=== PATIENT | male | born 1970 | race American Indian/Alaskan Native ===

== ENCOUNTER 2017-03-23 13:53 | Emergency (ER) | payer MEDICAID ==
[2017-03-23 14:12] VITALS: BMI 23.6
[2017-03-23 14:21] VITALS: RESP 18; TEMP 98.3
--- NOTE | 2017-03-23 16:12 | CT ---
PROCEDURE: CT scan of the brain dated 03/23/2017 HISTORY: Rule out intracranial hemorrhage and fracture. COMPARISON: No prior study available comparison however correlation made with concurrent CT scan of the orbits. TECHNIQUE: Contiguous helical/ transaxial sections were obtained through the head/brain without intravenous contrast. Radiation dose: Total exam DLP = 1280.18 mGy-cm. This CT exam was performed using one or more of the following dose reduction techniques: Automated exposure control, adjustment of the mA and/or kV according to patient size, and/or use of iterative reconstruction technique. FINDINGS: HEMORRHAGE: No acute parenchymal, subarachnoid or extra-axial hemorrhage. . BRAIN: Mild diffuse/confluent chronic periventricular white matter ischemic changes seen with scattered chronic appearing subcortical ischemic changes as well. Mild generalized volume loss. VENTRICLES: No obstructive hydrocephalus. CALVARIUM: There are no acute calvarial fractures so far as can be seen. . There is mild right supraorbital soft tissue/scalp swelling. Suspect old fracture deformity of the right lamina papyracea. Fracture deformity of the PARANASAL SINUSES: There is moderate mucosal thickening within the right maxillary antrum and mild moderate mucosal thickening left maxillary antrum. Mild moderate mucosal thickening noted within the ethmoid air complex extending superiorly into the frontal sinus No more so on the left side. Minimal mucosal thickening sphenoid sinus. MASTOID AIR CELLS: Unremarkable as visualized. No inflammatory changes. OTHER FINDINGS: None. IMPRESSION: No acute intracranial hemorrhage. Mild chronic white matter ischemic changes. Mild right supraorbital soft tissue/scalp swelling. Probable old fracture deformity right lamina papyracea. Mild mucoperiosteal inflammatory changes within the aforementioned paranasal sinuses.
--- NOTE | 2017-03-23 16:19 | CT ---
PROCEDURE: CT MAXILLOFACIAL BONES WITHOUT CONTRAST HISTORY: r/o fx COMPARISON: None TECHNIQUE: Contiguous axial CT images of the maxillofacial bones were obtained. Coronal and sagittal reformats were generated. Radiation dose: Total exam DLP = 797.85 mGy-cm. This CT exam was performed using one or more of the following dose reduction techniques: Automated exposure control, adjustment of the mA and/or kV according to patient size, and/or use of iterative reconstruction technique. . FINDINGS: NASAL BONES: Unremarkable. ORBITS: Depressed right lamina papyracea fracture of indeterminate age. No acute orbital floor fracture. Defect in the lateral right orbital floor may be developmental or the result of old fracture. No other orbital fracture appreciated. Soft tissue swelling right frontal scalp extending to right superior palpebrum. PARANASAL SINUSES/ MASTOIDS: Extensive chronic paranasal sinusitis involving ethmoid and bilateral maxillary sinuses with lesser involvement of frontal and sphenoid sinuses. No fluid collections. MAXILLA: Unremarkable. MANDIBLE/ TEMPOROMANDIBULAR JOINTS: Unremarkable. SKULL BASE: Unremarkable. TEMPORAL BONES: Middle ears and mastoid grossly unremarkable. OTHER FINDINGS: None. IMPRESSION: Right lamina papyracea fracture of indeterminate age. Possible old right orbital floor fracture but no evidence of acute fracture. Right frontal scalp soft tissue swelling. Chronic paranasal sinusitis.
--- NOTE | 2017-03-23 17:00 | RAD ---
HISTORY: s/p fall r/o fx and PTX COMPARISON: No prior. TECHNIQUE: Chest PA and lateral FINDINGS: LUNGS: No active pulmonary disease. PLEURA: No significant pleural effusion identified. No pneumothorax apparent. CARDIOVASCULAR: Normal. OSSEOUS STRUCTURES: No significant abnormalities. VISUALIZED UPPER ABDOMEN: Normal. OTHER FINDINGS: None. IMPRESSION: No active disease.
--- NOTE | 2017-03-23 17:18 | C.PDOC ---
History Of Present Illness 46 y/o male presents to ED c/o pain to lower lip and chest region after falling off approximately 7 feet off of a ladder. Denies LOC, nausea, vomiting, shortness of breath, or change in vision. - HPI Chief Complaint (Nursing): Trauma History Per: Patient History/Exam Limitations: no limitations Recent travel outside of the [place]: No Additional History Per: Patient Past Medical History Reviewed: Historical Data, Nursing Documentation, Vital Signs Vital Signs: Last Vital Signs Temp 98.3 F 03/23/17 14:17 Pulse 103 H 03/23/17 17:25 Resp 18 03/23/17 17:25 BP 135/92 H 03/23/17 17:25 Pulse Ox 98 03/23/17 19:05 - Medical History PMH: HTN - [facility] Procedures OTH WOUND IRRIGATION (03/06/13) TETANUS TOXOID ADMINIST (03/06/13) Family History: States: Unknown Family Hx - Social History Hx Tobacco Use: Yes Hx Alcohol Use: Yes Hx Substance Use: No - Immunization History Hx Tetanus Toxoid Vaccination: No Review Of Systems Except As Marked, All Systems Reviewed And Found Negative. Constitutional: Negative for: Fever, Chills ENT: Positive for: Mouth Pain (lower lip pain) Cardiovascular: Positive for: Chest Pain. Negative for: Palpitations, Light Headedness Respiratory: Negative for: Cough, Shortness of Breath Gastrointestinal: Negative for: Nausea, Vomiting, Abdominal Pain Physical Exam - Physical Exam Appears: Non-toxic, No Acute Distress Skin: Normal Color, Warm, Dry Head: Atraumatic, Normacephalic Eye(s): bilateral: Normal Inspection Oral Mucosa: Moist Tongue: Normal Appearing Lips: No Swelling, Abrasion (inside of lower lip), No Laceration Chest: Symmetrical, No Deformity, No Tenderness, No Ecchymosis Cardiovascular: Rhythm Regular, No Murmur Respiratory: Normal Breath Sounds, No Rales, No Rhonchi, No Wheezing Gastrointestinal/Abdominal: Soft, No Tenderness Extremity: Normal ROM, No Deformity Neurological/Psych: Oriented x3, Normal Speech ED Course And Treatment O2 Sat by Pulse Oximetry: 98 Medical Decision Making Medical Decision Making: Plan: Head CT Orbits/faical CT CXR Motrin Disposition - Disposition Referrals: Corinne Junior, [Non-Staff] - Disposition: HOME/ ROUTINE Disposition Time: 17:00 Condition: GOOD Additional Instructions: Thank you for letting us take care of you today. The emergency medical care you received today was directed at your acute symptoms. If you were prescribed any medication, please fill it and take as directed. It may take several days for your symptoms to resolve. Return to the Emergency Department if your symptoms worsen, do not improve, or if you have any other problems. Please contact your doctor or call one of the physicians/clinics you have been referred to that are listed on the Patient Visit Information form that is included in your discharge packet. Bring any paperwork you were given at discharge with you along with any medications you are taking to your follow up visit. Our treatment cannot replace ongoing medical care by a primary care provider (PCP) outside of the emergency department. Thank you for allowing the [facility] team to be part of your care today. Follow up with your doctor in 2-3 days for re-evaluation and further management. Prescriptions: Ibuprofen [Motrin] 600 mg PO Q6 PRN #20 tab PRN Reason: Pain, Moderate (4-7) Instructions: Closed Head Injury Forms: [employer] (Uruguayan) - Clinical Impression Clinical Impression: Head contusion - Scribe Statement The provider has reviewed the documentation as recorded by the Scribe Priyanka Hanks All medical record entries made by the Scribe were at my direction and personally dictated by me. I have reviewed the chart and agree that the record accurately reflects my personal performance of the history, physical exam, medical decision making, and the department course for this patient. I have also personally directed, reviewed, and agree with the discharge instructions and disposition.
[2017-03-23 17:26] VITALS: BP 135/92; PULSE 103
[2017-03-23 19:03] VITALS: O2SAT 98
--- NOTE | 2017-03-26 12:33 | CARD ---
APPROVED REPORT EKG Measurement Heart [id number] <Conclusion> Normal sinus rhythm Possible Left atrial enlargement Borderline ECG
== END 2017-03-23 17:26 | disposition home or self-care (01) ==
LOC: C.ER 13:53
DX: S00.93XA Contusion of unspecified part of head, initial encounter (principal); W11.XXXA Fall on and from ladder, initial encounter; Y92.89 Other specified places as the place of occurrence of the external cause

== ENCOUNTER 2018-04-12 11:34 | Emergency (ER) | payer MEDICAID, OTHER ==
[2018-04-12 11:34] VITALS: BMI 23.6
[2018-04-12 11:42] VITALS: TEMP 97.3
[2018-04-12] MEDS ORDERED: Tmp-Smz 800 mg-160 mg DS Tab PO STA (12:18)
[2018-04-12] MEDS ORDERED: Tmp-Smz 800 mg-160 mg DS Tab ONE (12:28)
--- NOTE | 2018-04-12 12:33 | C.PDOC ---
History Of Present Illness 47 y/o male presents to the ED for evaluation of epistaxis from the left nare since 10:00am today. States that he has been blowing his nose a lot recently, and admits to digital trauma inside the nare, though he is unsure if this precipitated the bleeding. Attempted to pack with tissues x4 but it continues to bleed. Denies applying pressure to the nose. He denies any fever, chills, nausea, vomiting, or hx of seasonal allergies. Time Seen by Provider: 04/12/18 11:46 Chief Complaint (Nursing): ENT Problem History Per: Patient History/Exam Limitations: no limitations Onset/Duration Of Symptoms: Hrs Current Symptoms Are (Timing): Still Present Location Of Bleeding: Left Nare Associated Symptoms: denies: Lightheadedness, Bleeding From Gums Recent Aspirin Use: No Past Medical History Reviewed: Historical Data, Nursing Documentation, Vital Signs Vital Signs: Last Vital Signs Temp 97.3 F L 04/12/18 11:39 Pulse 94 H 04/12/18 11:39 Resp 18 04/12/18 11:39 BP 169/106 H 04/12/18 11:39 Pulse Ox 98 04/12/18 11:39 - Medical History PMH: HTN - [facility] Procedures OTH WOUND IRRIGATION (03/06/13) TETANUS TOXOID ADMINIST (03/06/13) Family History: States: Unknown Family Hx - Social History Hx Tobacco Use: Yes Hx Alcohol Use: Yes Hx Substance Use: No - Immunization History Hx Tetanus Toxoid Vaccination: No Review Of Systems Except As Marked, All Systems Reviewed And Found Negative. Constitutional: Negative for: Fever, Chills Eyes: Negative for: Vision Change ENT: Positive for: Other (Epistaxis, left nare) Cardiovascular: Negative for: Light Headedness Respiratory: Negative for: Shortness of Breath Gastrointestinal: Negative for: Nausea, Vomiting Neurological: Negative for: Headache, Dizziness Physical Exam - Physical Exam Appears: Well, Non-toxic, No Acute Distress Skin: Normal Color, Warm, Dry Head: Atraumatic, Normacephalic Eye(s): bilateral: Normal Inspection Nose: Epistaxis (Left nare with clot, could not visualize the nare completely, no clot noted in the pharynx), No Septal Hematoma, Other (Right nare appears dry, with 1 area of pinpoint bleeding on the septum) Oral Mucosa: Moist Throat: Normal (Oropharynx is clear), No Erythema, No Exudate, Other (No gross blood or clots) Neck: Normal ROM, Supple Chest: Symmetrical Respiratory: No Accessory Muscle Use, Other (No respiratory distress) Extremity: Bilateral: Atraumatic, Normal ROM Pulses: Left Radial: Normal, Right Radial: Normal Neurological/Psych: Oriented x3, Normal Speech, Normal Cranial Nerves ED Course And Treatment O2 Sat by Pulse Oximetry: 98 (RA) Pulse Ox Interpretation: Normal Medical Decision Making Medical Decision Making: Impression: Epistaxis, left Plan: - Will attempt to place Rhino Rocket - 650 mg PO Tylenol given for pain - Patient started on 1 tab Bactrim DS PROCEDURE: EPISTAXIS MANAGEMENT Performed by the emergency provider Consent: Informed consent was obtained after discussion of the risks, benefits, and alternatives to the procedure. Indication: Nasal bleeding control Location: left naris Medication: N/A Cautery: N/A Packing: Rhino Rocket Post-procedure: Good hemostasis. The patient was observed following procedure and no repeat episode of bleeding was noted. Patient tolerated the procedure well with no immediate complications. 12:35 Repeat vitals demonstrate persistently elevated blood pressure, 213/116. Given 0.1 mg PO Clonidine. Patient is stable for discharge home with BP of HCTZ prescribed until he can see PCP in 1-2 days For Epistaxis:Packing was removed as per patient request No active bleeding noted No clot noted in pharynx Recommended Afrin soaked cotton if rebleeds and pinch nose for 15 mins Patient verbalized understanding and is in agreement with plan Return to ED if symptoms persist or worsen Patient is stable for discharge Disposition Counseled Patient/Family Regarding: Diagnosis, Need For Followup, Rx Given - Disposition Referrals: [facility] [Outside] Seng Lau MD [Staff Provider] - Disposition: HOME/ ROUTINE Disposition Time: 14:46 Condition: IMPROVED Additional Instructions: SALVADOR MOSQUERA, thank you for letting us take care of you today. Your provider was Usha Short MD/Woody Lopez PA-C and you were treated for NOSE BLEED. Afrin if bleeding continues then discontinue after 3 days HCTZ daily for HTN Please see PMD in 1-2 days for follow-up Prescriptions: Hydrochlorothiazide [Microzide] 12.5 mg PO DAILY #30 cap Oxymetazoline 0.05% [Oxymetazoline HCl 30 Ml] 1 spray NS BID PRN 3 Days #1 bottle PRN Reason: Sinus Symptoms Instructions: High Blood Pressure (DC), Nosebleeds (DC) Forms: [employer] (Khmer) - Clinical Impression Clinical Impression: Epistaxis, HTN (hypertension) - PA / PEANUT SORTER / Resident Statement MD/DO has reviewed & agrees with the documentation as recorded. - Scribe Statement The provider has reviewed the documentation as recorded by the Scribernesto Braswell All medical record entries made by the Scribe were at my direction and personally dictated by me. I have reviewed the chart and agree that the record accurately reflects my personal performance of the history, physical exam, medi tiffany decision making, and the department course for this patient. I have also personally directed, reviewed, and agree with the discharge instructions and disposition.
[2018-04-12 12:37] VITALS: RESP 16
[2018-04-12 14:36] VITALS: BP 134/96; PULSE 74
[2018-04-12 14:50] VITALS: O2SAT 98
== END 2018-04-12 15:09 | disposition home or self-care (01) ==
LOC: C.ER 11:34
DX: R04.0 Epistaxis (principal); I10 Essential (primary) hypertension; F17.210 Nicotine dependence, cigarettes, uncomplicated